=== PATIENT | male | born 2005 | race Two or more races ===

== ENCOUNTER 2025-03-03 11:51 | Emergency (ER) | payer OTHER ==
[~2025-03-03] VITALS: Ht 172.7 cm; Wt 81.6 kg
[2025-03-03 12:15] VITALS: BP 125/82; O2SAT 98
== END 2025-03-03 16:03 | disposition home or self-care (01) ==
LOC: ER 11:51
DX: S93.04XA Dislocation of right ankle joint, initial encounter (principal); X83.8XXA Intentional self-harm by other specified means, initial encounter; Y93.89 Activity, other specified; Y92.214 College as the place of occurrence of the external cause; Y99.8 Other external cause status